=== PATIENT | male | born 1990 | race Caucasian/White ===

== ENCOUNTER 2018-01-20 14:02 | Emergency (ER) | payer OTHER ==
[2018-01-20] MEDS ORDERED: TDAP ADULT 0.5 ML INJ (BOOSTRIX) IM ONE (15:13)
--- NOTE | 2018-01-20 15:13 | EDPHY ---
General Time Seen by Provider: 01/20/18 15:02 Narrative: CHIEF COMPLAINT: Nail 2 bottom of right foot HISTORY OF PRESENT ILLNESS: Patient complains of stepping on a nail at 10:00 a.m. This morning. 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 He was walking outside when he stepped on 2 nails. Only 1 of the nails punctured his foot. This was on the bottom of the right foot. He feels that it was very superficial. Minimally painful. No bleeding at this time. No injury elsewhere. He thinks his tetanus was updated around 10 years ago. No other associated complaints or modifying factors. ESTABLISHED ORTHOPEDIST: None REVIEW OF SYSTEMS: Ten systems reviewed and are negative unless otherwise noted in the HPI PAST MEDICAL HISTORY: Denies any medical history PAST SURGICAL HISTORY: Tonsils remotely SOCIAL HISTORY: Nonsmoker. Lives and works in [facility] FAMILY HISTORY: Noncontributory EXAMINATION General Appearance: Alert, no distress Cardiovascular: Symmetric DP and PT pulses 2+. Neurological: A&O, sensory symmetric, strength of the great toe symmetric. Skin: Warm and dry, no rash. Superficial puncture to the plantar surface of the right foot over the lateral portion. No bleeding. No foreign body. Extremities: Minimal tenderness in the area of the right foot puncture. Psychiatric: Mood and affect normal MDM: 3:10 p.m. Superficial puncture to the bottom of the right foot by a nail wearing a shoe. This occurred just within the past 5 hr. There is a small area of puncture. No signs of infection. His tetanus is questionable, thus we will updated here. He declined lidocaine but we will irrigate the wound copiously. I will treat him empirically with antibiotics. We discussed daily wound care. We discussed wound re-evaluation in 48 hr the need for worker's compensation follow-up. He is comfortable this plan and discharged home stable condition. SUPERVISION: This patient was independently evaluated without direct involvement of or examination by the attending physician. ED Precautions: Worsening pain. Erythema, edema, cyanosis, pallor, paresthesia or anesthesia. - History Smoking Status: Never smoked - Objective Vital Signs: Initial Vital Signs Temperature (C) 97.7 F 01/20/18 14:04 Heart Rate 62 01/20/18 14:04 Respiratory Rate 16 01/20/18 14:04 Blood Pressure 119/75 01/20/18 14:04 O2 Sat (%) 97 05/06/18 14:04 O2 Delivery Mode Room Air Allergies/Adverse Reactions: No Known Allergies Allergy (Unverified 01/20/18 14:04) Home Medications: Medication Instructions Recorded Amoxicillin/Clavulanate Pot 875 mg PO BID #14 tab 01/20/18 [Augmentin 875 MG TAB (*)] Departure - Departure Disposition: Home, Routine, Self-Care Clinical Impression: Puncture wound of right foot Qualifiers: Encounter type: initial encounter Qualified Code(s): S91.331A - Puncture wound without foreign body, right foot, initial encounter Condition: Good Instructions: Puncture Wound (ED) Additional Instructions: 1. Augmentin as prescribed for the next 7 days 2. Follow up with worker's compensation [facility] 3. Wound re-evaluation in 48 hr 4. ED precautions for increasing pain, redness, warmth, purulence or fever Referrals: Sean Bailey, [Medical Doctor] - As per Instructions Stand Alone Forms: Work Comp Follow Up Prescriptions: Amoxicillin/Clavulanate Pot [Augmentin 875 MG TAB (*)] 875 mg PO BID #14 tab
[2018-01-20 15:26] VITALS: BP 123/76
== END 2018-01-20 15:30 | disposition home or self-care (01) ==
DX: S91.331A Puncture wound without foreign body, right foot, initial encounter (principal); Z23 Encounter for immunization; W45.0XXA Nail entering through skin, initial encounter; Y99.8 Other external cause status; Y93.01 Activity, walking, marching and hiking